=== PATIENT | male | born 1970 | race Caucasian/White ===

== ENCOUNTER 2017-01-06 18:47 | Emergency (ER) | payer OTHER ==
[~2017-01-06] VITALS: Ht 185.4 cm; Wt 103.0 kg
[~2017-01-06 18:47] MED LIST: DENIES CURRENT MEDS; PENICILLN VK500 MG PO; ULTRAM50 M1 PO
[2017-01-06] MEDS ORDERED: ULTRAM50 M1 PO (19:49)
[2017-01-06 19:58] VITALS: BP 146/104
== END 2017-01-06 20:06 | disposition home or self-care (01) | DRG 605 ==
LOC: ED 18:47
DX: S50.12XA Contusion of left forearm, initial encounter (principal); I10 Essential (primary) hypertension; S51.012A Laceration without foreign body of left elbow, initial encounter; F17.210 Nicotine dependence, cigarettes, uncomplicated; W20.8XXA Other cause of strike by thrown, projected or falling object, initial encounter